=== PATIENT | female | born 1955 | race Caucasian/White ===

== ENCOUNTER 2016-11-24 17:04 | Observation (INO) | payer OTHER ==
[2016-11-24 17:50] LABS: HEMOGLOBIN 12.9 gm/dl (12.3-15.3); RED BLOOD COUNT 4.5 M/UL (4.00-5.10); WHITE BLOOD COUNT 8.2 K/UL (4.5-11.0)
[2016-11-24 17:59] LABS: BUN/CREATININE RATIO 14 (0-10)
[2016-11-24] MEDS ORDERED: PRED-G 1% EYE DR5 ML OP (22:26)
[2016-11-24] MEDS ORDERED: CELEXA40 MG PO (22:26)
[2016-11-25 05:21] LABS: HEMOGLOBIN 11.6 gm/dl (12.3-15.3); RED BLOOD COUNT 4.06 M/UL (4.00-5.10)
[2016-11-25 05:22] LABS: WHITE BLOOD COUNT 5.9 K/UL (4.5-11.0)
[2016-11-25 05:40] LABS: BUN/CREATININE RATIO 19 (0-10)
[2016-11-25] MEDS ORDERED: ASPIRIN EC81 MG PO (11:40)
[2016-11-25] MEDS ORDERED: NITROGLYCERIN0.4 MG SL (11:41)
[2016-11-25] MEDS ORDERED: FISH OIL 10001000 MG PO (11:41)
== END 2016-11-25 15:00 | disposition home or self-care (01) ==
LOC: ER1 17:04 → ZEROF 19:00 → MED SURG 4 22:04
PROVIDERS: Emergency Medicine; ADMIT Family Medicine
DX: R07.9 Chest pain, unspecified (principal); E78.5 Hyperlipidemia, unspecified; R73.03 Prediabetes; M19.90 Unspecified osteoarthritis, unspecified site; F17.210 Nicotine dependence, cigarettes, uncomplicated; Z86.14 Personal history of Methicillin resistant Staphylococcus aureus infection; Z84.1 Family history of disorders of kidney and ureter; Z88.8 Allergy status to other drugs, medicaments and biological substances; Z79.1 Long term (current) use of non-steroidal anti-inflammatories (NSAID); Z79.899 Other long term (current) drug therapy; Z90.49 Acquired absence of other specified parts of digestive tract; Z90.89 Acquired absence of other organs; Z90.710 Acquired absence of both cervix and uterus; Z94.7 Corneal transplant status; Z98.890 Other specified postprocedural states
CPT/HCPCS: 36415; 36600; 71010; 80048; 80053; 80061; 82550; 82553; 82803; 83036; 83735; 83874; 84439; 84443; 84484; 85025; 93005; 96372; 99285; G0378; J1650